=== PATIENT | male | born 1945 | race Caucasian/White ===

== ENCOUNTER → 2018-08-06 14:50 | Outpatient (CLI) | payer MEDICARE, OTHER, SELFPAY ==
--- NOTE | 2018-08-06 | DI.ECHO.S_ITS ---
[facility] +---------+ : : [address] : : : : [id number] : : : : Phone: [phone] Echocardiogram Report + + :Name: ARYA JAIMES Study Date: 08/06/2018 Height: 71 in : :[facility] Exam Location: IS Weight: 202 lb : : Gender: Male BSA: 2.1 m2 : :: 1945 Age: 72 yrs BP: 118/80 mmHg: :Reason For Study: Atrial fibrillation : :Ordering Physician: Isidro Luu Performed By: Jenny Morgan : :Referring: ISIDRO LUU : + + Interpretation Summary Left ventricular systolic function is low normal with the ejection fraction grossly estimated to be 50-60% with considerable nozm-xs-deaj variability because of the atrial fibrillation but no obvious focal wall motion abnormalities. The right ventricle is at the upper limits of normal in size and right ventricular systolic function is at the lower limits of normal. The right ventricular systolic pressure is estimated to be at least 21 mmHg based on an estimated right atrial pressure of 3 mm Hg. The left atrium is moderately dilated and the right atrium is borderline dilated. There is mild tricuspid regurgitationno other significant valvular heart disease. The ascending aorta is mildly enlarged. The patient was in atrial fibrillation with heart rates between 82-100 bpm during the exam. Procedure: A two-dimensional transthoracic echocardiogram with color flow and Doppler was performed. The study quality was technically adequate. There is no prior echocardiogram noted for this patient. The patient was in atrial fibrillation with heart rates between 82-100 bpm during the exam. Left Ventricle: The left ventricle is normal in size. There is normal left ventricular wall thickness. Left ventricular systolic function is low normal. Left ventricular ejection fraction is estimated to be 50-60% with considerable wxao-qz-sjvl variability because of the atrial fibrillation. There are no focal wall motion abnormalities. Diastolic function could not be accurately assessed due to atrial fibrillation. Right Ventricle: The right ventricle is at the upper limits of normal in size. Right ventricular systolic function is at the lower limits of normal. Atria: The left atrium is moderately dilated. The right atrium is borderline dilated. The interatrial septum is intact with no evidence for an atrial septal defect. Mitral Valve: The mitral valve leaflets appear mildly thickened, but open well. There is trace mitral regurgitation. Aortic Valve: The aortic valve is trileaflet. The aortic valve is slightly calcified. The aortic valve opens well. There is no aortic valve stenosis. No aortic regurgitation is present. Tricuspid Valve: The tricuspid valve is normal in structure and function. There is mild tricuspid regurgitation. The right ventricular systolic pressure is estimated to be at least 21 mmHg based on an estimated right atrial pressure of 3 mm Hg. Pulmonic Valve: The pulmonic valve is not well visualized. There is a trace or physiologic amount of pulmonic regurgitation. There is no other significant valvular heart disease. Great Vessels: The ascending aorta is mildly enlarged. The IVC is of normal diameter and collapses greater than 50% with a sniff. This suggests a low right atrial pressure of 3 mm Hg. Pericardium/ Pleura There is no pericardial effusion. There is no pleural effusion. MMode/2D Measurements & Calculations LVIDd: 4.9 cm LVOT diam: 2.2 cm IVSd: 0.86 cm asc Aorta Diam: 3.5 cm LVPWd: 0.93 cm Ao Arch Diam (Prox Trans): 2.8 cm LV mcintyre. diameter/BSA (cm/m^2): 2.3 LA A2 area: 26.8 cm2 RA long axis: 5.8 cm LA A4 area: 25.9 cm2 RA area: 21.3 cm2 LA length (vol): 6.2 cm RA vol: 66.8 ml LA vol: 95.0 ml RA : 31.5 ml/m2 LA vol index: 44.9 ml/m2 IVC diam: 2.2 cm TAPSE: 2.2 cm Doppler Measurements & Calculations Ao V2 max: 100.4 cm/sec LVOT Max Yeyo: 73.6 cm/sec Ao V2 mean: 70.6 cm/sec LV V1 max P.2 mmHg Ao max P.1 mmHg LV V1 VTI: 13.5 cm Ao mean P.2 mmHg CLAUS(I,D): 2.7 cm2 Ao V2 VTI: 18.6 cm CLAUS(V,D): 2.7 cm2 sev ratio: 0.73 CLAUS indexed to BSA (cm^2/m^2): 1.3 TR max yeyo: 211.0 cm/sec SV(LVOT): 49.6 ml TR max P.8 mmHg PA V2 max: 51.1 cm/sec PA V2 mean: 35.7 cm/sec PA mean P.58 mmHg PA pr(Accel): 20.4 mmHg Reading Physician:VANESSA
== END ==
PROVIDERS: PCP Internal Medicine; Visit Provider Internal Medicine
DX: I07.1 Rheumatic tricuspid insufficiency (principal); I48.91 Unspecified atrial fibrillation
CPT/HCPCS: 93306

== ENCOUNTER → 2018-09-30 12:58 | Outpatient (CLI) | payer MEDICARE, OTHER, SELFPAY ==
--- NOTE | 2018-09-30 | DI.RAD.S_ITS ---
PROCEDURE: FL BARIUM SWALLOW W SPEECH INDICATIONS: Other specified symptoms and signs involving TECHNIQUE: Examination was conducted in conjunction with speech pathology per standard protocol. In the lateral projection, filming was performed of the patient swallowing. AP projection filming may also be performed with patient swallowing. COMPARISON: None. FINDINGS: Function: The oral preparatory phase appears normal, with proper containment. The subsequent oral propulsive phase, pharyngeal phase, and esophageal phase of swallowing also appear normal with all proffered substances. No laryngotracheal penetration or aspiration. No pathologic vallecular pooling. Morphology: No cricopharyngeal bar is identified. No cervical esophageal webs. No Zenker's diverticulum. No strictures. IMPRESSION: Normal study. Please correlate with speech pathology notes. Dictated by: Bib Payne M.D. on 09/30/2018 at 15:11 Approved by: Bib Payne M.D. on 09/30/2018 at 15:11
--- NOTE | 2018-10-02 13:20 | ST.SWALLOW ---
Care Team Visit Care Team Role Provider Type Isidro Luu MD Attending Provider Non-Staff Primary Care Provider Specialty: Internal Medicine Address: [address] [place] [address], [place], [address] Email: ST Modified Barium Swallow Study HAT CONDITIONER Modified Barium Swallow Study Start: 09/30/18 15:51 Freq: Status: Active Protocol: Document 09/30/18 17:44 MG (Rec: 09/30/18 18:32 MG [id number]) Modified Barium Swallow Study Total Time Visit Start Time 13:30 Visit Stop Time 14:00 Total Visit Minutes 30 Visit Information Visit Number 1 Plan of Care Dates 09/29/18- Insurance Information Medicare Referral Referring Physician Isidro Luu Reason for Referral Recurrent Aspiration Setting Setting Outpatient Care Patient Information Identification Type Name Patient History Maikol Umana, a 72-year-old male, was seen for a MBS study to examine his swallowing capabilities due to increasing concerns with swallowing/ aspirating. Pt reported to the student HAT CONDITIONER that 4-5 times a week he chokes on his own saliva while sitting in a reclined position. Pt said this is more commonly happening in the evening as opposed to the morning. Pt also experiences this feeling when eating very particular foods, such as oily dressing on a salad. Besides these factors, pt does not report any other instances of choking /coughing at any other time or with any other type of food. Pt reported that this has been persistent for a couple of years, but has recently gotten worse in the past few months. Pt reported no head/neck trauma, surgery, or injury. Pt reported no hx of reflux. Pt currently does not take any medications. Subjective Observations Pt was on time and appeared to be in a good mood. He was agreeable to the study and followed all directions. Patient Positioning Position View Lateral Imaging Lateral View Textures Administered Trials Presented Thin Liquid via Spoon Thin Liquid via Cup Thin Liquid via Straw [place] Liquid via Spoon [place] Liquid via Cup Pudding Thick Liquid via Spoon Regular Textures Oral Phase Source: MBSIMP (TM) (C) Bolus Specific Scoring Grid Lip Closure No Impairment (WNL) Tongue Control During Bolus Hold Moderate Impairment Bolus Prep/Mastication Moderate Impairment Bolus Transport/Lingual Motion Moderate Impairment A/P Lingual Propulsion Delay No Oral Residue Moderate Impairment Residue Clearing Moderate Impairment Nasal Regurgitation No Additional Oral Phase Observations Pt demonstrated lingual rocking of the bolus on multiple trials. This could indicate reduced bolus control within the oral cavity resulting pre-swallow spillage into the pharynx. Oral residue was apparant on and under the tongue pre and post -swallow. This residue was observed to add to pre-swallow spillage. Pt spontaneously double swallows, but residue is remained. Overall, the pt's tongue body demonstrated overall weakness, which impairs bolus propulsion and control. Pharyngeal Phase Source: MBSIMP (TM) (C) Bolus Specific Scoring Grid Delayed Initiation of Pharyngeal Swallow Yes: Delayed swallow initiated at the level of pyriform sinuses Number of Seconds Delayed (seconds) 1-2 seconds Soft Palate Elevation Mild Impairment Tongue Base Strength/Range of Motion Moderate Impairment Residue Along the Tongue Base Yes Clearance of Residue Along Tongue Base Moderate Impairment Laryngeal Elevation Moderate Impairment Anterior Hyoid Movement Severe Impairment Epiglottic Range of Motion Moderate Impairment Vallecular Residue Yes Clearance of Vallecular Residue Moderate Impairment Laryngeal Vestibular Closure Moderate Impairment Pharyngeal Stripping Wave Moderate Impairment Pharyngeal Contraction Moderate Impairment Posterior Pharyngeal Wall Residue Yes Clearance of Posterior Pharyngeal Wall Moderate Impairment Residue Upper Esophageal Sphincter Opening WFL Residue in the Pyriform Sinuses Yes Clearance of Residue in the Pyriform Moderate Impairment Sinuses Esophageal Clearance Upright Position WFL Pharyngoesophageal Backflow Observed No Additional Pharyngeal Phase Observations The tongue base appears to be weak, which affects how the linguapharyngeal structures move the bolus into the pharynx. For all trials, the swallow response was triggered at the level of the pyriform sinuses, indicating reduced sensation and a swallow delay. bolus material was observed to partially escape into the lower 1/3 of the velar seal. Again, this would indicate weakness of the linguavelopharyngeal muscles for bolus propulsion Pt demonstrated reduced hyolaryngeal elevation as well as the movement of the hyoid. This negatively affects movement of the bolus and protection of the airway when swallowing. Epiglottal movement appeared to partially invert with liquid and solid trials; however it does not appear to invert with teaspoon amount of liquids. This reduces the protection to the airway as well as increased pooling of Pooled within the valleculae and pyriform sinuses. A spontaneous double swallow by the pt erduced the pooling; however ersidue remained in the pharyngeal cavities. The pharyngeal stripping wave was significantly reduced, indicate poor bolus control. A/P View Esophageal Observations Esophageal Function Osteophyte @ C5-C6 was observed and impeared the inpact the bolus flow @ UES. Clinical Impressions Dysphagia Type Oropharyngeal dysphagia Findings Pt appears to have reduced bolus control as demonstrated by pre-swallow spillage down into pyriform sinuses. Therefore, increased pooling within the pharyngeal cavities could overflow into the trachea, and induce a cough/ choking sensation as a way to protect the airway. Rehabilitation Potential Good Patient Appropriate for Therapy Yes Recommendations Diet Liquids Order Thin Diet Order Regular Medication Recommendation As Tolerated Aspiration Precautions Recommended Precautions Upright at 90 Degrees Effortful Swallow Double Swallow Lingual Sweep Romana Maneuvor Additional Precautions Francine exercises Treatment Plan Therapy Recommendations Outpatient Speech Therapy Lingual Exercises Base of Tongue Exercises Recommended Referrals Neurology ENT Consult Compensatory Strategies Recommendations Sitting Upright (90 deg) Double Swallow Mendelsonn Maneuver Additional Compensatory Strategies Francine exercises Recommended Short Term Goals Pt will demonstrate understanding of provided education provided relative to the anatomy and physiology of the swallow mechanism. Pt will practice HEP for increasing linguapharyngeal strength for safe swallow. Prison Goals Pt will report less frequency of choking.
== END ==
PROVIDERS: PCP Internal Medicine; Visit Provider Internal Medicine
DX: R09.89 Other specified symptoms and signs involving the circulatory and respiratory systems (principal)
CPT/HCPCS: 74230; 92611

== ENCOUNTER 2018-11-18 11:07 | Outpatient (RCR) | payer MEDICARE, OTHER, SELFPAY ==
--- NOTE | 2018-11-18 18:08 | ST.OPIE ---
Provider Information Visit Care Team Role Provider Type Isidro Luu MD Attending Provider Non-Staff Primary Care Provider Specialty: Internal Medicine Address: [address] [place] [address], [address] Email: Speech-Language Pathology Initial Evaluation [employer] REPAIRER Clinical Instructor Line Start: 11/18/18 15:17 Freq: Status: Active Protocol: Document 11/18/18 15:18 LNK (Rec: 11/18/18 15:18 LNK [id number]) Clinical Instructor Signature Clinical Instructor Clinical Instructor Yes: Sindi La, PhD , [facility]-[employer] REPAIRER [employer] REPAIRER Clinical Swallow Evaluation Start: 11/18/18 12:59 Freq: Status: Active Protocol: Document 11/18/18 13:00 MG (Rec: 11/18/18 13:16 MG [id number]) Clinical Swallow Evaluation Session Time Visit Start Time 11:30 Visit Stop Time 12:05 Total Visit Minutes 35 Visit Information Visit Number 1 Plan of Care Dates 11/18/18-02/18/19 Insurance Information Medicare Referral Referring Physician Dr. Luu Reason for Referral Swallowing problems Setting Assessment Location Outpatient Care Visit Type Note Type Initial Evaluation Next Note Type Next Note Type Treatment Note Patient Information Identification Type Name History Maikol Umana, a 73-year-old male, was seen for a clinical swallow evaluation to discuss his MBSS results in regards to his swallowing difficulties and create HEP. Pt reported to the student [employer] REPAIRER that 4-5 times a week he chokes on his own saliva while sitting in a reclined position. Pt said this is more commonly happening in the evening as opposed to the morning. Pt also experiences this feeling when eating very particular foods, such as peanut butter. Besides these factors, pt does not report any other instances of choking/coughing at any other time or with any other type of food. Pt reported that this has been persistent for a couple of years, but has recently gotten worse in the past few months. Pt reported no head/neck trauma, surgery, or injury. Pt reported no hx of reflux. Pt does not have a hx of pneumonia. Subjective Observations Maikol was on time to the session. Appeared to be in a good mood. Was agreeable to HEP and education around the swallowing mechanism. Evaluation Liquids Trialed Thin Rugby Pudding Solids Trialed Regular Administration Type Tea Spoon Cup Single Sip Cup Consecutive Sips Self-Feeding Oral Impairment Moderately Impaired Oral Phase Comments From MBSS: Pt demonstrated lingual rocking of the bolus on multiple trials. This could indicate reduced bolus control within the oral cavity resulting pre-swallow spillage into the pharynx. Oral residue was apparant on and under the tongue pre and post-swallow. This residue was observed to add to pre- swallow spillage. Pt spontaneously double swallows, but residue is remained. Overall, the pt's tongue body demonstrated overall weakness, which impairs bolus propulsion and control. Pharyngeal Impairment Moderately Impaired Pharyngeal Strategies Sitting Upright (90 deg) Double Swallow Effortful Swallow Mendelsonn Maneuver Pharyngeal Phase Comments From MBSS: The tongue base appears to be weak, which affects how the linguapharyngeal structures move the bolus into the pharynx. For all trials, the swallow response was triggered at the level of the pyriform sinuses, indicating reduced sensation and a swallow delay. bolus material was observed to partially escape into the lower 1/3 of the velar seal. Again, this would indicate weakness of the linguavelopharyngeal muscles for bolus propulsion Pt demonstrated reduced hyolaryngeal elevation as well as the movement of the hyoid. This negatively affects movement of the bolus and protection of the airway when swallowing. Epiglottal movement appeared to partially invert with liquid and solid trials; however it does not appear to invert with teaspoon amount of liquids. This reduces the protection to the airway as well as increased pooling of Pooled within the valleculae and pyriform sinuses. A spontaneous double swallow by the pt erduced the pooling; however residue remained in the pharyngeal cavities. The pharyngeal stripping wave was significantly reduced, indicate poor bolus control. Findings Dysphagia Type Moderate oropharyngeal dysphagia Rehabilitation Potential Good Impressions Pt appears to have reduced bolus control as demonstrated by pre-swallow spillage down into pyriform sinuses. Therefore, increased pooling within the pharyngeal cavities could overflow into the trachea, and induce a cough/ choking sensation as a way to protect the airway. Student [employer] REPAIRER provided HEP involved various exercises (i. e., Francine, effortful swallow, Mendelsonn maneuver) to strengthen swallowing muscles and reduce instances of choking sensation and coughing on pooled saliva. Student [employer] REPAIRER informed Maikol that if he does not note any changes or decreased frequency of choking , he should make another appointment with the clinic to discuss changes to HEP. Maikol was agreeable to the HEP, education, and plan thus far. Diet Recommendations Liquids Order Thin Diet Order Regular Medication Recommendations As Tolerated Aspiration Precautions Recommended Precautions Upright at 90 Degrees Effortful Swallow Double Swallow Romana Maneuvor Additional Precautions Francine exercises Treatment Plan Placement Recommendations after Home Discharge Appropriate for Therapy Yes Therapy Recommendations Maikol is a good candidate for ST focusing on dysphasia treatment and HEP. Dysphagia Goals Maikol will demonstrate understanding of provided education provided relative to the anatomy and physiology of the swallow mechanism. Tennilleletha will practice HEP for increasing linguapharyngeal strength for safe swallow. Maikol will report less frequency of choking.
--- NOTE | 2018-11-18 18:08 | ST.OPPOC ---
Care Team Visit Care Team Role Provider Type Isidro Luu MD Attending Provider Non-Staff Primary Care Provider Address: [address] [place] [address], [id number] Speech Pathology Plan of Care INSURANCE CLAIMS EXAMINER Clinical Instructor Line Start: 11/18/18 15:17 Freq: Status: Active Protocol: Document 11/18/18 15:18 LNK (Rec: 11/18/18 15:18 LNK [id number]) Clinical Instructor Signature Clinical Instructor Clinical Instructor Yes: Sindi La, PhD , CCC-INSURANCE CLAIMS EXAMINER Speech Pathology Plan of Care Plan of Care Dates 11/18/18-02/18/19 Rehabilitation Potential Good Please Sign and Return: I have reviewed this Plan of Care and certify that the skilled therapy services above are required to meet the patient?s needs. Physician Signature Date Printed Name and Credentials Clinical Instructor Signature Printed Name and Credentials
--- NOTE | 2019-01-06 17:54 | ST.OPDS ---
Care Team Visit Care Team Role Provider Type Isidro Luu MD Attending Provider Non-Staff Primary Care Provider Address: [address] [place] [address], [place], [address] WATER METER INSTALLER Treatment Note WATER METER INSTALLER Clinical Instructor Line Start: 11/18/18 15:17 Freq: Status: Active Protocol: Document 11/18/18 15:18 LNK (Rec: 11/18/18 15:18 LNK [id number]) Clinical Instructor Signature Clinical Instructor Clinical Instructor Yes: Sindi La, PhD , [facility]-WATER METER INSTALLER WATER METER INSTALLER Treatment Note Start: 11/18/18 12:59 Freq: Status: Active Protocol: Document 01/06/19 17:51 LNK (Rec: 01/06/19 17:54 LNK [id number]) Speech Pathology Treatment Note Visit Type Note Type Discharge Summary General Information General Information Maikol Umana, a 73-year-old male, was seen for a clinical swallow evaluation to discuss his MBSS results in regards to his swallowing difficulties and create HEP. Subjective Chief Complaint(s) Swallowing Objective Client Services Representative Goals Maikol will demonstrate understanding of provided education provided relative to the anatomy and physiology of the swallow mechanism. Maikol will practice HEP for increasing linguapharyngeal strength for safe swallow. Assessment Assessment of Improvement Pt was seen for evaluation only. He did not return to this clinic. He was last seen 11/18/18. Will discharge pt at this time Plan Amount of Therapy Recommended No Further Therapy Frequency of Treatment No Further Therapy Therapy Recommendations Discharge from Speech Therapy
== END 2019-01-10 14:06 | disposition home or self-care (01) ==
LOC: SP 11:07
PROVIDERS: PCP Internal Medicine; Visit Provider Internal Medicine
DX: H35.30 Unspecified macular degeneration (principal); E78.00 Pure hypercholesterolemia, unspecified; I49.1 Atrial premature depolarization; R00.2 Palpitations; S93.509A Unspecified sprain of unspecified toe(s), initial encounter; I48.91 Unspecified atrial fibrillation; R09.89 Other specified symptoms and signs involving the circulatory and respiratory systems; Z13.6 Encounter for screening for cardiovascular disorders; Z12.11 Encounter for screening for malignant neoplasm of colon
CPT/HCPCS: 92610

== ENCOUNTER → 2018-12-03 07:55 | Outpatient (CLI) | payer MEDICARE, OTHER, SELFPAY ==
--- NOTE | 2018-12-03 | DI.US.S_ITS ---
PROCEDURE: US CAROTID DOPPLER BI INDICATIONS: TIA TECHNIQUE: Color and pulse Doppler interrogation was performed of both carotid systems, with image documentation and velocity measurements. COMPARISON: None. FINDINGS: Stenosis calculations are based on SRU (Society of Radiologists in Ultrasound) criteria. Right side: Brachial blood pressure: 116/74 mm Hg. Common carotid artery peak systolic velocity: 68 cm/sec. Internal carotid artery peak systolic velocity: 68 cm/sec. Internal carotid artery end diastolic velocity: 34 cm/sec. External carotid artery peak systolic velocity: 47 cm/sec. ICA/CCA peak systolic ratio: 1.0. Riddle scale imaging description: Mild scattered plaque. Percent internal carotid artery stenosis: Less than 50%. Vertebral artery: Flow direction is antegrade. Left side: Brachial blood pressure: 112/72 mm Hg. Common carotid artery peak systolic velocity: 80 cm/sec. Internal carotid artery peak systolic velocity: 55 cm/sec. Internal carotid artery end diastolic velocity: 28 cm/sec. External carotid artery peak systolic velocity: 54 cm/sec. ICA/CCA peak systolic ratio: 0.7. Riddle scale imaging description: Mild scattered plaque. Percent internal carotid artery stenosis: Less than 50%. Vertebral artery: Not visualized. IMPRESSION: Less than 50% bilateral internal carotid artery stenosis. Dictated by: Niranjan Miranda [facility] Interpreted: Talha Singh MD on 12/03/2018 at 9:24 Approved by: Talha Singh M.D. on 12/04/2018 at 9:48
== END ==
PROVIDERS: PCP Internal Medicine; Visit Provider Physician Assistant Medical
DX: G45.9 Transient cerebral ischemic attack, unspecified (principal); I48.91 Unspecified atrial fibrillation
CPT/HCPCS: 93880

== ENCOUNTER → 2019-12-15 11:02 | Outpatient (CLI) | payer MEDICARE, OTHER, SELFPAY ==
[2019-12-16 15:14] LABS: Fecal Immunochemical Test Negative (Negative)
== END ==
PROVIDERS: PCP Nurse Practitioner; Referring Provider Nurse Practitioner; Visit Provider Nurse Practitioner
DX: Z12.11 Encounter for screening for malignant neoplasm of colon (principal)
CPT/HCPCS: 82274

== ENCOUNTER 2022-05-11 10:40 | Emergency (ER) | payer MEDICARE, OTHER, SELFPAY ==
[2022-05-11 10:53] VITALS: BP 129/66; PULSE 74; RESP 18; O2SAT 96; BMI 27.8
--- NOTE | 2022-05-11 11:11 | ED.GENADULT ---
HPI - General Adult General Chief complaint: Upper Respiratory Symptoms Stated complaint: tested positive for covid this morning Time Seen by Provider: 05/11/22 10:44 Source: patient Mode of arrival: Ambulatory History of Present Illness HPI narrative: 76-year-old male who stated that several days ago he had upper respiratory tract infection like symptoms. Two days ago he took a home COVID test and it was negative. Yesterday his started to develop symptoms that were consistent with COVID. His took a COVID test this morning and it was positive. Maikol then took a COVID test this morning and was also positive. He is here in the emergency department with his . He is not having chest pain or shortness of breath. He is vaccinated. He does have a history of chronic AFib. Is on apixaban. Related Data Home Medications Medication Instructions Recorded Confirmed red yeast rice 600 mg tablet 600 mg PO DAILY 09/02/19 04/18/22 metoprolol succinate 25 mg 25 mg PO BID 11/24/20 04/18/22 tablet,extended release 24 hr nitroglycerin 0.4 mg sublingual 0.4 mg sublingual Q5-15M PRN 09/05/21 04/18/22 tablet desonide 0.05 % topical ointment 1 applic topical QD-BID PRN 10/05/21 04/18/22 Previous Rx's Medication Instructions Recorded apixaban 5 mg tablet (Eliquis) 5 mg PO BID #180 tabs 09/02/19 ezetimibe 10 mg tablet (Zetia) 10 mg PO DAILY #90 tabs 09/02/19 Allergies Allergy/AdvReac Type Severity Reaction Status Date / Time amiodarone Allergy Severe sensitivity Verified 04/18/22 12:07 to sun, hands red/edema, lip edema Dgkhntz-IBK-TzH Reductase Allergy Severe irriatation, Verified 04/18/22 12:07 Inhibitor anger, [Brkaaru-Gda-Zdr Reductase sucicidal Inhibitor] thoughts, cramps cephalexin [From Keflex] Allergy Mild hives Verified 04/18/22 12:07 amlodipine AdvReac Severe Lip Verified 04/18/22 12:07 swelling, hand swelling ranolazine [From Ranexa] AdvReac Severe amnesia Verified 04/18/22 12:07 Codeine Allergy Mild hives Uncoded 04/18/22 12:07 Review of Systems Constitutional Constitutional: Reports system reviewed and no additional complaints, except as documented Cardiovascular Cardiovascular: Reports system reviewed and no additional complaints, except as documented Respiratory Respiratory: Reports system reviewed and no additional complaints, except as documented Hematologic/Lymphatic On Anticoagulants: Yes Patient History Medical History Acne (~1958) Atrial fibrillation Chicken pox (~1949) Chronic anticoagulation Chronic atrial fibrillation, unspecified (~2018) Chronic back pain (~1976) Foot pain (~1998) Hearing loss History of cardiovascular disorder Hx TIA/stroke w/o resid Hyperlipidemia LDL goal <70 Macular degeneration (~2003) Measles (~1949) Mumps (~1949) Obstructive sleep apnea (~2018) Overweight (BMI 25.0-29.9) Plantar warts Swallowing problem (~2018) TIA (transient ischemic attack) (~2018) Tinnitus (~1965) Vertigo (~2014) Surgical History Anesthesia History of eyelid surgery (~2009) History of foot surgery (~2017) History of right inguinal hernia repair (~2001) History of tonsillectomy (~1948) Status post left foot surgery Status post right rotator cuff repair (~1999) Family History Father History of heart disease Mother Congestive heart failure Diabetes mellitus Brother Macular degeneration Brother History of heart disease Sister Macular degeneration Grandmother Diabetes mellitus History of heart disease Grandfather No problems noted. Grandfather History of heart disease Grandmother Aneurysm Daughter Scoliosis Social History Smoking Status: Former smoker Smoking Status: Former smoker Substance Use Type: does not use Exam Initial Vital Signs Initial Vital Signs: Vital Signs Pulse Rate 74 05/11/22 10:53 Respiratory Rate 18 05/11/22 10:53 Blood Pressure 129/66 05/11/22 10:53 Pulse Oximetry 96 05/11/22 10:53 Oxygen Delivery Method 05/11/22 10:53 Const General: cooperative and comfortable HENMT Head: normal to inspection and normocephalic Resp Effort & Inspection: normal respiratory effort Auscultation: clear to auscultation bilaterally Cardio Rate: regular rate Rhythm: regular rhythm Neuro General: patient alert, patient awake, patient oriented x3 and moves all extremities Extrem General: normal to inspection and capillary refill normal Psych Appearance: grossly normal and well kempt Course Vital Signs Vital signs: Vital Signs - 8 hr 05/11/22 10:53 Pulse Rate 74 Respiratory Rate 18 Blood Pressure 129/66 Pulse Oximetry 96 Oxygen Delivery Method Room Air Medical Decision Making MDM Narrative Medical decision making narrative: No respiratory distress. Patient is a candidate for Paxlovid however he is on apixaban. He was informed that he would have to stop this medication. We discussed the risks and benefits of this and he would like to not stop the apixaban. No indication for admission the hospital. No indication for radiologic studies. No indication for antibiotics. He was given return precautions. He expressed understanding and agreement. Discharge Plan Departure Patient Disposition: Home Clinical Impression: COVID-19 Instructions: COVID-19 Activity Restrictions/Additional Instructions: Please follow-up current CDC guidelines with regard to quarantine. You can take Tylenol/ibuprofen for any fevers or body aches. Continue all of your medications as directed. Contact your primary doctor for a follow-up. Return to the emergency department for any new or worsening symptoms. Prescriptions: No Action desonide 0.05 % ointment 1 applic topical QD-BID PRN red yeast rice 600 mg tablet 600 mg PO DAILY Eliquis 5 mg tablet 5 mg PO BID Qty: 180 0RF ezetimibe [Zetia] 10 mg tablet 10 mg PO DAILY Qty: 90 0RF metoprolol succinate 25 mg tablet extended release 24 hr 25 mg PO BID nitroglycerin 0.4 mg tablet, sublingual 0.4 mg sublingual Q5-15M PRN Rx Instructions: do not exceed 3 doses per episode Referrals: Sirisha Álvarez ARNP [Primary Care Provider] -
== END 2022-05-11 11:43 | disposition home or self-care (01) ==
PROVIDERS: Emergency Provider Emergency Medicine; PCP Nurse Practitioner
DX: U07.1 COVID-19 (principal)
CPT/HCPCS: 99281

== ENCOUNTER → 2022-10-05 13:20 | Outpatient (CLI) | payer MEDICARE, OTHER, SELFPAY ==
--- NOTE | 2022-10-05 13:21 | DI.RAD.S_ITS ---
PROCEDURE: XR RIBS RT MIN 3V W CXR 1V INDICATIONS: Rib pain TECHNIQUE: 4 views of the right ribs were acquired, along with a single view chest. COMPARISON: None. FINDINGS: Surgical changes and devices: None. Bones and chest wall: No fractures or dislocations. No suspicious bony lesions. Overlying soft tissues appear unremarkable. Lungs and pleura: No pleural effusions or pneumothorax. Lungs appear clear. Mediastinum: Mediastinal contours appear normal. Heart size is normal. IMPRESSION: No acute fracture. No osseous lesion. If symptoms and/or clinical suspicion for pathology persist, further assessment with repeat, or advanced imaging (e.g., CT, MRI, or bone scan) may be helpful for further assessment. Dictated by: Jared Carter M.D. on 10/05/2022 at 14:59 Transcribed by: AURORA on 10/05/2022 at 15:00 Approved by: Jared Carter M.D. on 10/05/2022 at 16:44
== END ==
PROVIDERS: PCP Nurse Practitioner; Referring Provider Nurse Practitioner Family; Visit Provider Nurse Practitioner Family
DX: S29.9XXA Unspecified injury of thorax, initial encounter (principal); X58.XXXA Exposure to other specified factors, initial encounter
CPT/HCPCS: 71101

== ENCOUNTER → 2023-07-27 10:08 | Outpatient (CLI) | payer MEDICARE, OTHER, SELFPAY ==
--- NOTE | 2023-07-27 10:09 | DI.RAD.S_ITS ---
PROCEDURE: XR CERVICAL SPINE 2V OR 3V INDICATIONS: Overuse syndrome and persistent pain x3+ months. TECHNIQUE: 3 view(s) of the cervical spine were acquired. COMPARISON: None. FINDINGS: Bones: No fractures or dislocations to the C7 level. Straightening of the normal cervical lordosis. There are multilevel degenerative changes of the cervical spine with facet and uncovertebral arthropathy, disc height loss with degenerative endplate changes and spurring. This is most pronounced at C5-C6. The lateral masses of C1 appear intact on the odontoid view. No suspicious bony lesions. Soft tissues: No prevertebral soft tissue swelling. IMPRESSION: Degenerative changes of the cervical spine, most pronounced at C5-C6. Dictated by: Dung Pickering M.D. on 07/27/2023 at 12:21 Approved by: Dung Pickering M.D. on 07/27/2023 at 12:22
== END ==
LOC: RAD 10:09
PROVIDERS: PCP Nurse Practitioner; Referring Provider Nurse Practitioner; Visit Provider Nurse Practitioner
DX: S16.1XXA Strain of muscle, fascia and tendon at neck level, initial encounter (principal); M47.812 Spondylosis without myelopathy or radiculopathy, cervical region; M79.643 Pain in unspecified hand; R20.0 Anesthesia of skin; R20.2 Paresthesia of skin; X50.3XXA Overexertion from repetitive movements, initial encounter
CPT/HCPCS: 72040

== ENCOUNTER → 2023-12-18 13:44 | Outpatient (CLI) | payer MEDICARE, OTHER, SELFPAY ==
[2023-12-18 14:37] LABS: Add Manual Diff / Slide Review NO; Basophils Absolute Auto 0 /uL (0-100); Basophils Percent Auto 0.8 % (0-2); Eosinophils Absolute Auto 200 /uL (0-450); Eosinophils Percent Auto 3.2 % (2-4); Hematocrit 39.5 % (41-53); Hemoglobin 13.5 g/dL (13.5-17.5); Lymphocytes Absolute Auto 1700 /uL (1100-4500); Lymphocytes Percent Auto 32.4 % (25-40); Mean Corpuscular HGB Conc 34.2 % (30-36); Mean Corpuscular Hemoglobin 33.5 PG (26-34); Mean Corpuscular Volume 97.9 fL (80-100); Monocytes Absolute Auto 500 /uL (0-900); Monocytes Percent Auto 9.6 % (3-14); Neutrophils Absolute Auto 2800 /uL (1500-7000); Platelet Count 190 X10^3/uL (150-400); Red Blood Cell Count 4.03 X10^6/uL (4.5-5.9); White Blood Cell Count 5.3 X10^3/uL (4.5-11.0)
[2023-12-18 14:47] LABS: HEMOLYSIS < 15 (0-50); Iron 126 ug/dL (49-181)
[2023-12-18 14:50] LABS: Alanine Aminotransferase 18 IU/L (<50); Albumin 4.2 g/dL (3.5-5.0); Albumin Globulin Ratio 1.5 (1.0-2.8); Alkaline Phosphatase 65 U/L (38-126); Aspartate Aminotransferase 27 IU/L (17-59); Bilirubin Total 0.6 mg/dL (0.2-1.3); Blood Urea Nitrogen 24 mg/dL (9-20); Calcium 8.7 mg/dL (8.4-10.2); Carbon Dioxide 27 mmol/L (22-32); Chloride 104 mmol/L (98-107); Estimated Glomerular Filt Rate > 60 mL/min (>60); Globulin 2.8 g/dL (1.7-4.1); Glucose 98 mg/dL (80-110); HEMOLYSIS < 15 (0-50); Potassium 4.4 mmol/L (3.4-5.1); Sodium 138 mmol/L (137-145)
[2023-12-18 14:58] LABS: Percent Iron Saturation 43 % (20-50); Total Iron Binding Capacity 291 ug/dL (261-462); Transferrin 237 mg/dL (206-381)
[2023-12-18 15:04] LABS: Free T3, Triiodothyronine Free 3.51 pg/mL (2.77-5.27); Free T4, Direct Thyroxine 0.86 ng/dL (0.78-2.19)
[2023-12-18 15:17] LABS: Thyroid Stimulating Hormone 3.03 uIU/mL (0.47-4.68)
[2023-12-18 15:37] LABS: Vitamin B12 745 pg/mL (239-931)
== END ==
PROVIDERS: PCP Nurse Practitioner; Referring Provider Nurse Practitioner; Visit Provider Nurse Practitioner
DX: R00.2 Palpitations (principal); S80.12XA Contusion of left lower leg, initial encounter; I48.91 Unspecified atrial fibrillation; Z79.01 Long term (current) use of anticoagulants
CPT/HCPCS: 36415; 80053; 82607; 83540; 83550; 84439; 84443; 84481; 85025

== ENCOUNTER → 2024-01-14 07:51 | Outpatient (CLI) | payer MEDICARE, OTHER, SELFPAY | LOC: CAR 07:52 | PROVIDERS: PCP Nurse Practitioner; Referring Provider Nurse Practitioner; Visit Provider Nurse Practitioner | DX: R00.2 Palpitations (principal) | CPT/HCPCS: 93242 ==

== ENCOUNTER 2024-08-03 09:59 | Emergency (ER) | payer MEDICARE, OTHER, SELFPAY ==
[2024-08-03 10:12] VITALS: BP 155/87; PULSE 63; RESP 18; TEMP 36.9; O2SAT 99; BMI 26.7
--- NOTE | 2024-08-03 10:35 | EKG_ITS ---
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
--- NOTE | 2024-08-03 10:40 | ED_ITS ---
HPI - Abdominal Pain General Chief Complaint: Abdominal Pain Stated Complaint: inguinal hernia, pain and swelling Time Seen by Provider: 08/03/24 10:39 Source: patient Mode of arrival: Ambulatory History of Present Illness HPI narrative: Patient is an 78-year-old healthy male who presents today with ongoing right lower quadrant pain. Reports he was in [place] 3 weeks ago diagnosed with a right inguinal hernia. Reports that it has come and gone over the last couple of weeks. He saw a new primary care provider who made him a referral for General surgery. He says that he though he is able to lay down and push it back in. He has been having some increased pain last couple of days. He says it came out this morning he was able to push it back in. No real change in bowel habits no nausea or vomiting. Is just wanting another CT scan and carious about next steps. He says it does hurt when he walks. He feels some burning sensation down there. Related Data Home Medications Medication Instructions Recorded Confirmed metoprolol succinate 25 mg 25 mg PO BID 11/24/20 07/21/24 tablet,extended release 24 hr evolocumab 140 mg/mL subcutaneous 140 mg SUBCUT Q2W 11/07/23 07/21/24 syringe (Repatha Syringe) Previous Rx's Medication Instructions Recorded apixaban 5 mg tablet (Eliquis) 5 mg PO BID #180 tabs 09/02/19 Allergies Allergy/AdvReac Type Severity Reaction Status Date / Time amiodarone Allergy Severe sensitivity Verified 12/18/23 12:29 to sun, hands red/edema, lip edema Kryfqvy-PCO-HnA Reductase Allergy Severe irriatation, Verified 12/18/23 12:29 Inhibitor anger, [Bnoutbr-Xwu-Osf Reductase sucicidal Inhibitor] thoughts, cramps cephalexin [From Keflex] Allergy Mild hives Verified 12/18/23 12:29 amlodipine AdvReac Severe Lip Verified 12/18/23 12:29 swelling, hand swelling ranolazine [From Ranexa] AdvReac Severe amnesia Verified 12/18/23 12:29 Codeine Allergy Mild hives Uncoded 12/18/23 12:29 Patient History Medical History Inguinal hernia of right side without obstruction or gangrene Coronary artery disease Tachy-maribel syndrome Mixed hyperlipidemia Chronic atrial fibrillation Basal cell carcinoma Hx TIA/stroke w/o resid Overweight (BMI 25.0-29.9) Chronic anticoagulation Hearing loss Plantar warts Acne (~1958) Foot pain (~1998) Chronic back pain (~1976) Mumps (~1949) Measles (~1949) Chicken pox (~1949) Macular degeneration (~2003) Swallowing problem (~2018) Vertigo (~2014) Tinnitus (~1965) History of cardiovascular disorder TIA (transient ischemic attack) (~2018) Obstructive sleep apnea (~2018) Surgical History S/P cardiac pacemaker procedure Anesthesia History of tonsillectomy (~1948) History of foot surgery (~2017) History of eyelid surgery (~2009) History of right inguinal hernia repair (~2001) Status post right rotator cuff repair (~1999) Status post left foot surgery Family History Father History of heart disease Mother Congestive heart failure Diabetes mellitus Brother Macular degeneration Brother History of heart disease Sister Macular degeneration Grandmother Diabetes mellitus History of heart disease Grandfather No problems noted. 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 HEENT: Head atraumatic,EOMI, pupils reactive, face symmetric, moist mucous membranes CARDIOVASCULAR: Regular rate and rhythm without murmurs, rubs or gallops. RESPIRATORY: Breath sounds equal bilaterally, no wheezes rales or rhonchi. ABDOMEN: Soft, nontender. No inguinal swelling pain or bulging EXTREMITIES: Normal range of motion, no clubbing or edema. Neurovascularly intact NEUROLOGICAL: Alert and oriented x4.Normal gait and speech. SKIN: Warm, dry, no laceration, no petechiae, no rashes or lesions. Course Orders Ordered: ED Orders 08/03/24 10:35 EKG-12 Lead Stat 08/03/24 10:52 CT abdomen pelvis w con Stat 08/03/24 10:55 Complete Blood Count AUTO DIFF Stat Comprehensive Metabolic Panel Stat Lipase Stat 08/03/24 11:00 Urinalysis and Microscopic Stat Ondansetron HCl (Ondansetron 4 Mg/2 Ml Inj) 4 mg IV NOW PRN PRN Reason: Nausea And Vomiting Ondansetron HCl (Ondansetron 4 Mg Odt) 4 mg PO NOW PRN PRN Reason: Nausea And Vomiting Vital Signs Vital signs: Vital Signs - 8 hr 08/03/24 10:12 08/03/24 10:58 08/03/24 10:58 Temperature 98.4 F Pulse Rate 63 60 Respiratory Rate 18 Blood Pressure 155/87 H 125/77 Pulse Oximetry 99 97 Oxygen Delivery Method Room Air 08/03/24 11:00 08/03/24 11:00 08/03/24 12:08 Temperature 98.2 F Pulse Rate 60 68 Respiratory Rate 18 Blood Pressure 119/65 120/68 Pulse Oximetry 98 99 Oxygen Delivery Method Room Air MDM - Abdominal Pain Lab Data 08/03/24 10:55 08/03/24 10:55 Labs: Lab Results 08/03/24 08/03/24 Range/Units 10:55 11:00 WBC 4.9 (4.5-11.0) X10^3/uL RBC 4.33 L (4.5-5.9) X10^6/uL Hgb 14.1 (13.5-17.5) g/dL Hct 41.6 (41-53) % MCV 96.0 (80-100) fL MCH 32.5 (26-34) PG MCHC 33.9 (30-36) % RDW 12.6 (11.6-14.8) % Plt Count 163 (150-400) X10^3/uL Neut % (Auto) 58.9 (50-75) % Lymph % (Auto) 25.9 (25-40) % [place] % (Auto) 13.2 (3-14) % Eos % (Auto) 1.4 L (2-4) % Baso % (Auto) 0.6 (0-2) % Neut # (Auto) 2900 (1958-9057) /uL Lymph # (Auto) 1300 (9589-1800) /uL [place] # (Auto) 600 (0-900) /uL Eos # (Auto) 100 (0-450) /uL Baso # (Auto) 0 (0-100) /uL Sodium 138 (137-145) mmol/L Potassium 4.7 (3.4-5.1) mmol/L Chloride 103 (98-107) mmol/L Carbon Dioxide 28 (22-32) mmol/L BUN 22 H (9-20) mg/dL Creatinine 1.09 (0.66-1.25) mg/dL Estimated GFR > 60 (>60) mL/min BUN/Creatinine Ratio 20.2 (6-22) Glucose 99 (80-110) mg/dL Calcium 9.3 (8.4-10.2) mg/dL Total Bilirubin 0.8 (0.2-1.3) mg/dL AST 27 (17-59) IU/L ALT 20 (<50) IU/L Alkaline Phosphatase 51 (38-126) U/L Total Protein 7.1 (6.3-8.2) g/dL Albumin 4.2 (3.5-5.0) g/dL Globulin 2.9 (1.7-4.1) g/dL Albumin/Globulin Ratio 1.4 (1.0-2.8) Lipase 55 (23-300) U/L Urine Color Yellow Urine Appearance Clear Urine pH 6.0 (4.5-8.0) Ur Specific [place] <=1.005 (1.000-1.035) Urine Protein Negative (Negative) Urine Glucose (UA) Negative (Negative) g/dL Urine Ketones Negative (NEGATIVE) Urine Occult Blood Negative (Negative) Urine Nitrate Negative (Negative) Urine Bilirubin Negative (NEGATIVE) Urine Urobilinogen 0.2 (0.2) E.U./dL Ur Leukocyte Esterase Negative (NEGATIVE) Urine RBC None seen (0-5/HPF) Urine WBC 0-1/hpf (0-5/HPF) Ur Squamous Epith Cells 1-5 /hpf (0-5/HPF) Urine Bacteria None seen (None) Ur Culture Indicated? Cult not indicated Vol Urine Centrifuged 10ml (spun) Imaging Data CT scan - abdomen/pelvis: Radiologist's Impression: PROCEDURE: CT ABDOMEN PELVIS W CON INDICATIONS: Right inguinal hernia right lower pain TECHNIQUE: After the administration of intravenous contrast, axial sections acquired from the lung bases to the pubic symphysis. Coronal and sagittal reformats were performed. For radiation dose reduction, the following was used: automated exposure control, adjustment of mA and/or kV according to patient size. COMPARISON: None. FINDINGS: Image quality: Diagnostic. Lower Chest: A small hiatal hernia is incidentally noted. Pacer leads are seen. ABDOMEN: Liver: No solid mass. Gallbladder: No radiopaque gallstones or wall thickening. Biliary ducts: No biliary dilation. Pancreas: No ductal dilation. Spleen: Size is within normal limits. Adrenal Glands: No adrenal nodules. Kidneys and Ureters: No hydronephrosis. No solid mass. No complex renal cystic lesion which requires follow up. Stomach and Bowel: Moderate distal colonic diverticulosis is seen, without findings of active diverticulitis. The more proximal colon is within normal limits. A normal appendix is noted. No dilated loops of small bowel are seen. Peritoneum: No abnormal intraperitoneal fluid. No free air. Ventral Wall: No significant ventral hernia. Abdominal Nodes: No retroperitoneal or mesenteric adenopathy by size criteria. Vessels: Aorta and inferior vena cava are normal in size. PELVIS: Pelvic Organs: Heterogeneity is seen of the prostate. Bladder: No bladder wall thickening, accounting for underdistention. Pelvic Nodes: No enlarged lymph nodes. Miscellaneous: There is a mkjg-aa-udutbmlf fat containing right inguinal hernia. No bowel is seen within this hernia. Apparent left inguinal hernia repair seen, without a significant recurrent hernia. Bones: No aggressive osseous abnormality. Degenerative changes are seen, which are worst involving the lower lumbar spine. IMPRESSION: There is a kaqd-cv-xeglnkba fat containing right inguinal hernia. Prior left inguinal hernia repair Additional findings: Pacer leads Small hiatal hernia Diverticulosis, without active diverticulitis Heterogeneous prostate Dictated by: Craig Clement M.D. on 08/03/2024 at 10:32 ECG Data Interpretation: Sinus rhythm rate 60 FL interval 230 QRS [address] changes no T-wave inversions MDM Narrative Medical decision making narrative: Patient 78-year-old male with known right inguinal hernia presenting today with ongoing right inguinal pain. He does not have any kind of bulging or incarcerated hernia on exam. Long discussion with him that he can continue doing what he is doing and pushing a back in every time. However he is still wanting a CT scan for the surgeon. He has not needing anything for pain. He has no nausea vomiting or change in bowel habits Blood work has been reviewed no leukocytosis no anemia, electrolytes within normal limits no evidence of dehydration no MURRAY, liver enzymes bilirubin within normal limits CT does show right inguinal hernia with fat stranding no evidence of incarceration Patient has a known right inguinal hernia no evidence of incarceration on exam or on CT. Patient not needing anything for pain. At this time recommend outpatient follow up with surgery Discharge Plan Departure Patient Disposition: Home Clinical Impression: Hernia, inguinal, right Instructions: Groin Hernia -- Adult Activity Restrictions/Additional Instructions: *You have been diagnosed with right inguinal hernia *What to do: At this time please follow-up with surgery. As long as you can lay down and push the bulge in and reduce it it is okay. I do recommend looking into a hernia belt. If you are unable to reduce the bulge pain is worsening you have vomiting or decreased stool then please return to ED *Continue to take medications as directed Tylenol as needed for pain *Follow up with your primary care provider in 2-3 days or call [phone] *Return to ER if you should have any of the above symptoms or any new, worsening or concerning symptoms Prescriptions: No Action Repatha Syringe 140 mg/mL syringe 140 mg SUBCUT Q2W Eliquis 5 mg tablet 5 mg PO BID Qty: 180 0RF metoprolol succinate 25 mg tablet extended release 24 hr 25 mg PO BID Referrals: [facility] [Provider Group] Ankur Blank MD [Primary Care Provider] - Stand Alone Forms: Patient Portal/API/Survey
--- NOTE | 2024-08-03 10:52 | DI.CT.S_ITS ---
PROCEDURE: CT ABDOMEN PELVIS W CON INDICATIONS: Right inguinal hernia right lower pain TECHNIQUE: After the administration of intravenous contrast, axial sections acquired from the lung bases to the pubic symphysis. Coronal and sagittal reformats were performed. For radiation dose reduction, the following was used: automated exposure control, adjustment of mA and/or kV according to patient size. COMPARISON: None. FINDINGS: Image quality: Diagnostic. Lower Chest: A small hiatal hernia is incidentally noted. Pacer leads are seen. ABDOMEN: Liver: No solid mass. Gallbladder: No radiopaque gallstones or wall thickening. Biliary ducts: No biliary dilation. Pancreas: No ductal dilation. Spleen: Size is within normal limits. Adrenal Glands: No adrenal nodules. Kidneys and Ureters: No hydronephrosis. No solid mass. No complex renal cystic lesion which requires follow up. Stomach and Bowel: Moderate distal colonic diverticulosis is seen, without findings of active diverticulitis. The more proximal colon is within normal limits. A normal appendix is noted. No dilated loops of small bowel are seen. Peritoneum: No abnormal intraperitoneal fluid. No free air. Ventral Wall: No significant ventral hernia. Abdominal Nodes: No retroperitoneal or mesenteric adenopathy by size criteria. Vessels: Aorta and inferior vena cava are normal in size. PELVIS: Pelvic Organs: Heterogeneity is seen of the prostate. Bladder: No bladder wall thickening, accounting for underdistention. Pelvic Nodes: No enlarged lymph nodes. Miscellaneous: There is a bquo-cv-grqctafy fat containing right inguinal hernia. No bowel is seen within this hernia. Apparent left inguinal hernia repair seen, without a significant recurrent hernia. Bones: No aggressive osseous abnormality. Degenerative changes are seen, which are worst involving the lower lumbar spine. IMPRESSION: There is a ybzj-bj-nkyhzuij fat containing right inguinal hernia. Prior left inguinal hernia repair Additional findings: Pacer leads Small hiatal hernia Diverticulosis, without active diverticulitis Heterogeneous prostate Dictated by: Craig Clement M.D. on 08/03/2024 at 10:32 Approved by: Craig Clement M.D. on 08/03/2024 at 10:34
[2024-08-03 10:58] VITALS: BP 125/77; PULSE 60; O2SAT 97
[2024-08-03 11:00] VITALS: BP 119/65; PULSE 60; O2SAT 98
[2024-08-03 11:07] LABS: Add Manual Diff / Slide Review NO; Basophils Absolute Auto 0 /uL (0-100); Basophils Percent Auto 0.6 % (0-2); Eosinophils Absolute Auto 100 /uL (0-450); Eosinophils Percent Auto 1.4 % (2-4); Hematocrit 41.6 % (41-53); Hemoglobin 14.1 g/dL (13.5-17.5); Lymphocytes Absolute Auto 1300 /uL (1100-4500); Lymphocytes Percent Auto 25.9 % (25-40); Mean Corpuscular HGB Conc 33.9 % (30-36); Mean Corpuscular Hemoglobin 32.5 PG (26-34); Monocytes Absolute Auto 600 /uL (0-900); Monocytes Percent Auto 13.2 % (3-14); Neutrophils Absolute Auto 2900 /uL (1500-7000); Neutrophils Percent Auto 58.9 % (50-75); Platelet Count 163 X10^3/uL (150-400); Red Blood Cell Count 4.33 X10^6/uL (4.5-5.9); Red Cell Distribution Width 12.6 % (11.6-14.8); White Blood Cell Count 4.9 X10^3/uL (4.5-11.0)
[2024-08-03 11:13] LABS: Appearance Urine UA CLEAR; Bilirubin Urine UA NEGATIVE (NEGATIVE); Color Urine UA YELLOW; Glucose Urine UA NEGATIVE (Negative); Ketones Urine UA NEGATIVE (NEGATIVE); Leukocyte Esterase Urine UA NEGATIVE (NEGATIVE); Nitrite Urine UA NEGATIVE (Negative); Occult Blood Urine UA NEGATIVE (Negative); Protein Urine UA NEGATIVE (Negative); Specific Gravity Urine UA <=1.005 (1.000-1.035); Urobilinogen Urine UA 0.2 E.U./dL (0.2)
[2024-08-03 11:21] LABS: RBC Urine None Seen (0-5/HPF); Urine Volume 10mL (spun); WBC Urine 0-1/HPF (0-5/HPF)
[2024-08-03 11:22] LABS: Bacteria Urine None Seen; Culture Indicated Urine Cult Not Indicated; Squamous Epithelial Cell Urine 1-5 /HPF (0-5/HPF)
[2024-08-03 11:24] LABS: Alanine Aminotransferase 20 IU/L (<50); Albumin 4.2 g/dL (3.5-5.0); Albumin Globulin Ratio 1.4 (1.0-2.8); Alkaline Phosphatase 51 U/L (38-126); Aspartate Aminotransferase 27 IU/L (17-59); BUN Creatinine Ratio 20.2 (6-22); Bilirubin Total 0.8 mg/dL (0.2-1.3); Blood Urea Nitrogen 22 mg/dL (9-20); Calcium 9.3 mg/dL (8.4-10.2); Carbon Dioxide 28 mmol/L (22-32); Chloride 103 mmol/L (98-107); Estimated Glomerular Filt Rate > 60 mL/min (>60); Globulin 2.9 g/dL (1.7-4.1); Glucose 99 mg/dL (80-110); HEMOLYSIS 27 (0-50); Lipase 55 U/L (23-300); Potassium 4.7 mmol/L (3.4-5.1); Sodium 138 mmol/L (137-145); Total Protein 7.1 g/dL (6.3-8.2)
[2024-08-03 12:08] VITALS: BP 120/68; PULSE 68; RESP 18; TEMP 36.8; O2SAT 99
== END 2024-08-03 12:12 | disposition home or self-care (01) ==
PROVIDERS: Emergency Provider Emergency Medicine; PCP Internal Medicine
DX: K40.90 Unilateral inguinal hernia, without obstruction or gangrene, not specified as recurrent (principal)
CPT/HCPCS: 36415; 74177; 80053; 81001; 83690; 85025; 93005; 93010; 99284; Q9967

== ENCOUNTER 2024-09-09 12:47 | Day surgery (SDC) | payer MEDICARE, OTHER, SELFPAY ==
[2024-09-02 13:17] VITALS: BMI 26.4
[2024-09-09] VITALS (7 sets, daily range): BP systolic 120–142; BP diastolic 62–85; PULSE 60–101; RESP 12–18; TEMP 36.1–36.5; O2SAT 95–99; BMI 26.4
[2024-09-09] MEDS: ACETAMINOPHEN 325 MG TABLET 975 MG PO (13:06)
[2024-09-09] MEDS: LACTATED RINGERS 1,000 ML 42 ML IV (13:07)
--- NOTE | 2024-09-09 13:22 | P.HP_ITS ---
History of Present Illness History of Present Illness Date Patient Seen: 09/09/24 Time Patient Seen: 13:22 Chief complaint: Right Laparoscopic Inguinal Hernia Repair Narrative: Maikol is an 78 year old man with a right inguinal hernia. See the office note from August for details. 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 Overweight (BMI 25.0-29.9) Chronic anticoagulation Hearing loss Plantar warts Acne (~1958) Foot pain (~1998) Chronic back pain (~1976) Mumps (~1949) Measles (~1949) Chicken pox (~1949) Macular degeneration (~2003) Swallowing problem (~2018) Vertigo (~2014) Tinnitus (~1965) History of cardiovascular disorder TIA (transient ischemic attack) (~2018) Obstructive sleep apnea (~2018) Surgical History S/P cardiac pacemaker procedure Anesthesia History of tonsillectomy (~194) History of foot surgery (~2017) History of eyelid surgery (~2009) History of right inguinal hernia repair (~2001) Status post right rotator cuff repair (~1999) Status post left foot surgery Family History Father History of heart disease Mother Congestive heart failure Diabetes mellitus Brother Macular degeneration Brother History of heart disease Sister Macular degeneration Grandmother Diabetes mellitus History of heart disease Grandfather No problems noted. 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 household members: spouse Smoking Status: Former smoker alcohol intake: current Meds Home Medications and Allergies Home Medications Medication Instructions Recorded Confirmed Type apixaban 5 mg tablet (Eliquis) 5 mg PO BID #180 tabs 09/02/19 09/09/24 Rx metoprolol succinate 25 mg 25 mg PO BID 11/24/20 09/09/24 History tablet,extended release 24 hr evolocumab 140 mg/mL subcutaneous 140 mg SUBCUT Q2W 11/07/23 08/18/24 History syringe (Repatha Syringe) Allergies Allergy/AdvReac Type Severity Reaction Status Date / Time amiodarone Allergy Severe sensitivity Verified 09/09/24 13:08 to sun, hands red/edema, lip edema [id number] Reductase Allergy Severe irriatation, Verified 09/09/24 13:08 Inhibitor anger, [[id number]-Vaw Reductase sucicidal Inhibitor] thoughts, cramps cephalexin [From Keflex] Allergy Mild hives Verified 09/09/24 13:08 amlodipine AdvReac Severe Lip Verified 09/09/24 13:08 swelling, hand swelling ranolazine [From Ranexa] AdvReac Severe amnesia Verified 09/09/24 13:08 Codeine Allergy Mild hives Uncoded 09/09/24 13:08 Exam Const General: No acute distress Resp Effort & Inspection: normal respiratory effort Assessment & Plan Assessment and plan (1) Hernia, inguinal, right: Status: Inactive Plan Laparoscopic right inguinal hernia repair with mesh Time-Based Coding :: [TOTAL MINUTES] spent with patient and on the chart (including review of chart, obtaining history, exam, reviewing outside data, placing orders, documenting exam and treatment plan, and counseling patient) on [DATE]. [employer] Document charge(s): No
[2024-09-09] MEDS: CEFAZOLIN 2 GM/100 ML PREMIX 100 ML IV (13:57)
[2024-09-09] MEDS: BUPIVACAINE 0.5% W/ EPI (PF) 30 ML VIAL INJ (14:03)
--- NOTE | 2024-09-09 14:52 | P.OP_ITS ---
Operative Date/Time/Diagnoses Date of procedure: 09/09/24 Time of procedure: 14:52 Pre-op diagnosis: Right inguinal hernia Post-op diagnosis: other (Right indirect inguinal hernia) Procedure & Clinicians Procedure: Laparoscopic right inguinal hernia repair with mesh Same procedure as scheduled: Yes Surgeon: Joao Sood Desk Assistant: Raheel Carrillo Anesthesia Type: General Operative Notes Procedure in detail: The patient was given preoperative antibiotics. The patient was brought to the operating room, placed on the table in the supine position with the arms tucked and general anesthesia was induced. The abdomen was prepped and draped in the usual fashion. A time-out was performed. A 1 cm supraumbilical incision was created and dissection was carried down to the anterior sheath. The fascia was scored transversely with cautery. The inferior leaf of the fascia was grasped with a Leonela clamp to elevate abdominal wall and a Peon clamp was used to nettles the peritoneum. The Ioana port was placed and the abdomen was insufflat ed to 15 mmHg. The camera was inserted, there was no evidence of any injury from the entry. There was a fairly large right indirect inguinal hernia. 5 mm ports were placed under direct vision in the mid left and mid right abdomen. The patient was positioned in steep Trendelenburg. We created right peritoneal flap. The peritoneum was dissected off the right cord structures. A large right Bard mesh was brought in and placed over the defect with the medial edge against Jeff's ligament. We then closed the peritoneal flap with a running 3- 0 barbed suture. We took one last look around the abdomen and saw no other abnormalities. The suture was removed and accounted for. The 5 mm ports were removed under direct vision. The abdomen was desufflated. The Ioana port was removed. Additional local was injected into the fascia and the fascial incision was closed with 2 interrupted 0 Vicryl sutures. The skin incisions were closed with 4 Monocryl, Steri-Strips and Band-Aids. EBL: 10 mL Raheel ALVARADO provided assistance with exposure, retraction and closure of incisions. Post-operative Condition: stable Disposition: PACU
[2024-09-09] MEDS: fentaNYL 100 MCG/2 ML INJ IV (15:03)
[2024-09-09] MEDS: OXYCODONE IR 5 MG TABLET PO (15:13)
--- NOTE | 2024-09-09 15:30 | SUR.PHASEII ---
per Dr. Sood patient can resume his Eliquis today (09/09/2024) at his next scheduled dose.
== END 2024-09-09 16:30 | disposition home or self-care (01) ==
PROVIDERS: PCP Internal Medicine; Referring Provider Surgery; Visit Provider Surgery
PROC: 0YQ54ZZ Repair Right Inguinal Region, Percutaneous Endoscopic Approach (ICD-10-PCS; CPT 49650; principal; 2024-09-09 14:30)
DX: K40.90 Unilateral inguinal hernia, without obstruction or gangrene, not specified as recurrent (principal); Z87.891 Personal history of nicotine dependence
CPT/HCPCS: 49650; C1781; J0690; J1100; J2405; J2704; J3010; J3490